=== PATIENT | male | born 1985 | race American Indian/Alaskan Native ===

== ENCOUNTER 2019-08-13 21:31 | Emergency (ER) | payer SELFPAY | END 2019-08-14 03:45 | disposition home or self-care (01) | LOC: ED 21:31 | CPT/HCPCS: 36415; 71045; 80048; 84484; 85025; 93005; 93010 ==

== ENCOUNTER 2020-06-03 14:05 | Emergency (ER) | payer SELFPAY ==
--- NOTE | 2020-06-03 15:39 | XRay Report ---
RIGHT SHOULDER 3 VIEWS INDICATION / CLINICAL INFORMATION: Shoulder dislocation COMPARISON: 05/27/2015 FINDINGS: BONES / JOINT(S): There is dislocation of the right shoulder joint. No significant arthritis. No acut e fracture is seen. There appears to be a small chronic Hill-Sachs lesion. SOFT TISSUES: No significant abnormality. ADDITIONAL FINDINGS: None. Signer Name: James Gan MD Signed: 06/03/2020 3:35 PM Workstation Name: [id number]
[2020-06-03] MEDS ORDERED: propofoL 200 MG/20 ML VIAL IV ONE ×2 (16:06→16:53)
[2020-06-03] MEDS ORDERED: SODIUM CHLORIDE 0.9% 1000 ML 1,000 ML IV ONE (16:06)
[2020-06-03] MEDS ORDERED: KETAMINE 500 MG/5 ML VIAL MDV IV ONE ×2 (16:06→16:52)
--- NOTE | 2020-06-03 16:09 | Emergency Department Report ---
HPI - General Chief Complaint: Shoulder Injury Time Seen by Provider: 06/03/20 15:57 - HPI HPI: This is a 34-year-old male who presents to the emergency department with a complaint of a right shoulder dislocation. This would be the fourth or fifth shoulder dislocation over the past 5 or 6 years. Patient was moving some furniture with his significant other and when he raised it above his head he suddenly felt his shoulder go out of place. He is right-hand dominant. He last ate some food at around 11 AM this morning. No other past medical conditions. He has not taken anything for his symptoms prior to presentation today. The pain is currently 8 out of 10 but worsens with any type of movement. ED Past Medical Hx - Past Medical History Previous Medical History?: No Additional medical history: shoulder dislocation - Surgical History Past Surgical History?: No - Social History Smoking Status: Never Smoker Substance Use Type: Other - Medications Home Medications: Home Medications Medication Instructions Recorded Confirmed Last Taken Type HYDROcodone/APAP 5-325 [[place] 1 each PO Q6HR PRN #12 tablet 05/27/15 Unknown Rx 5/325] ED Review of Systems ROS: Stated complaint: ARM OUT OF PLACE Other details as noted in HPI Comment: All other systems reviewed and negative Constitutional: denies: chills, fever Respiratory: denies: shortness of breath Cardiovascular: denies: chest pain Gastrointestinal: denies: abdominal pain Musculoskeletal: arthralgia. denies: joint swelling Neurological: denies: numbness, paresthesias Physical Exam - Physical Exam Vital Signs: Vital Signs 06/03/20 14:40 Temperature 98.8 F Pulse Rate 58 L Respiratory 20 Rate Blood Pressure 127/84 [Right] O2 Sat by Pulse 99 Oximetry Physical Exam: GENERAL: The patient is well-developed well-nourished. HENT: Normocephalic. Atraumatic. Patient has moist mucous membranes. EYES: Extraocular motions are intact. NECK: Supple. Trachea is midline. CHEST/LUNGS: Clear to auscultation. There is no respiratory distress noted. HEART/CARDIOVASCULAR: Regular. There is no tachycardia. There is no murmur. ABDOMEN: There is no abdominal distention. SKIN: Skin is warm and dry. NEURO: The patient is awake, alert, and oriented. The patient is cooperative. Normal speech. MUSCULOSKELETAL: There is tenderness to palpation to the right shoulder. He is holding his right upper extremity and internal rotation against his body. Decreased range of motion of the right upper extremity secondary to shoulder pain. Radial pulse +2/4 and capillary refill less than 2 seconds to the affected right upper extremity. ED Course Vital Signs 06/03/20 14:40 Temperature 98.8 F Pulse Rate 58 L Respiratory 20 Rate Blood Pressure 127/84 [Right] O2 Sat by Pulse 99 Oximetry - Moderate Sedation Indications: fracture/dislocation redu ASA Class: I Mallampati Airway Score: 1 Time of Last PO Intake: 11:00 Preparation: log pond worker applied, pulse oximeter, capnometry used, supplemental O2 applied, reversal agents at bedside, suction/airway equipment at bedside, IV secured Ketamine: IV Ketamine Dose: 50 IV Propofol Dose (mgs): 110 Complications: none Patient Tolerated Procedure: well - Orthopedic Joint Reduction Joint #1 Consent Obtained: written consent Time Out Performed: Yes Side: right Joint Reduction Location: shoulder Analgesia: moderate sedation Shoulder Technique Used (if applicable): traction/counter-traction, external rotation Post-Reduction Neuro Exam: intact Post-Reduction Vascular Exam: intact Post Reduction X-Ray Obtained: Yes Post Reduction X-Ray Results: reduced Splint Applied: Yes Patient Tolerated Procedure: well ED Medical Decision Making - Radiology Data Radiology results: image reviewed interpreted by me: Right shoulder x-ray #1 shows an anterior-inferior shoulder dislocation. 1 view postreduction shoulder x-ray #2 shows appropriate reduction of the humeral head into the glenohumeral joint. - Medical Decision Making This patient presents with a right shoulder dislocation that appears to be recurrent over the past 5 to 6 years. He is neurovascularly intact. Shoulder x-rays confirms an anterior inferior shoulder dislocation. The patient was set up for moderate sedation and using tractioncountertraction and external rotation I was able to successfully reduce the dislocation. Repeat x-ray confirms appropriate reduction. The patient is neurovascularly intact both before and after the procedure. He was placed in a shoulder immobilizer. We monitored the patient until he was back at his baseline mental status after the moderate sedation. The patient will be driven home by either a friend or family member. He will remain in the shoulder immobilizer until follow-up with the orthopedist and has been given multiple referrals. Critical Care Time: No Critical care attestation.: If time is entered above; I have spent that time in minutes in the direct care of this critically ill patient, excluding procedure time. ED Disposition Clinical Impression: Dislocation of shoulder, right, closed Qualifiers: Encounter type: initial encounter Qualified Code(s): S43.004A - Unspecified dislocation of right shoulder joint, initial encounter Disposition: TO HOME OR SELFCARE Is pt being admited?: No Condition: Stable Instructions: Shoulder Dislocation (ED), Moderate Sedation (ED) Additional Instructions: Please follow-up with an orthopedist in the next few days. Remain in the shoul zacarias immobilizer until follow-up with the orthopedist. Return to the emergency department with any worsening of your symptoms, new or concerning symptoms not addressed during this emergency department visit, or with any acute distress. Referrals: [facility] [Provider Group] - 3-5 Days LUIZ ALVARADO MD [Staff Physician] - 3-5 Days Time of Disposition: 17:48
--- NOTE | 2020-06-03 17:10 | XRay Report ---
RIGHT SHOULDER 1 VIEW(S) INDICATION / CLINICAL INFORMATION: Post reduction COMPARISON: None available. FINDINGS: The right glenohumeral joint now projects in satisfactory alignment postreduction. No new fracture is seen. Signer Name: Wilfredo Álvarez MD Signed: 06/03/2020 5:05 PM Workstation Name: [id number]
[2020-06-03 18:45] VITALS: BP 135/84
== END 2020-06-03 18:43 | disposition home or self-care (01) ==
LOC: ED 14:05
DX: S43.004A Unspecified dislocation of right shoulder joint, initial encounter (principal); Z79.899 Other long term (current) drug therapy; X58.XXXA Exposure to other specified factors, initial encounter; Y93.89 Activity, other specified; Y92.89 Other specified places as the place of occurrence of the external cause; Y99.8 Other external cause status
CPT/HCPCS: 23650; 73020; 73030; 96374; 96375; 99284; J2704; J7030